=== PATIENT | male | born 1955 | race Caucasian/White ===

== ENCOUNTER 2018-09-25 09:34 | Emergency (ER) | payer OTHER ==
[2018-09-25 09:46] VITALS: BP 151/82
--- NOTE | 2018-09-25 09:55 | EDPHY ---
H & P Stated Complaint: laceration right foot Time Seen by Provider: 09/25/18 09:45 HPI/ROS: HPI: This is a 63-year-old male who presents with Chief Complaint: Right foot laceration Location: Right foot Quality: laceration Duration: 15-20 minutes prior to arrival Signs and Symptoms: + bleeding, no radiation, no numbness, no weakness, no tingling, no incontinence, no decreased range of motion, no swelling, + pain, no fever Timing: Acute Severity: Mild Context: Patient was exercising in his swimming pool this morning when he stepped out of the pool and stepped onto the plastic controller and cut the bottom of his right foot. He reports that he felt immediate, constant, moderate pain that was nonradiating in nature. He reports that he immediately started to bleed. He applied direct pressure and the bleeding continued. Denies any radiculopathy, paresthesias, decreased range of motion. Tetanus is up-to-date. Modifying Factors: Direct pressure Comment: ROS: A comprehensive 10 system review of systems is otherwise negative aside from elements mentioned in the history of present illness. MEDICAL/SURGICAL/SOCIAL HISTORY: Medical history: Generally healthy. Does not take any regular medications. Surgical history: Denies Social history: Current every day smoker. Employed. CONSTITUTIONAL: Well-developed, well-nourished, adult male, polite and cooperative, awake and alert, no obvious distress HEENT: Atraumatic and normocephalic, PERRL, EOMI. Nares patent; no rhinorrhea; no nasal mucosal edema. Tympanic membranes clear. Oropharynx clear, no exudate and moist pink mucosa. Airway patent. No lymphadenopathy. No meningismus. Cardiovascular: Normal S1/S2, regular rate, regular rhythm, without murmur rub or gallop. PULMONARY/CHEST: Symmetrical and nontender. Clear to auscultation bilaterally. Good air movement. No accessory muscle usage. ABDOMEN: Soft, nondistended, nontender, no rebound, no guarding, no peritoneal signs, no masses or organomegaly. No CVAT. EXTREMITIES: 2/2 pulses, strength 5/5, no deformities, no clubbing, no cyanosis or edema. NEUROLOGICAL: no focal neuro deficits. GCS 15. SKIN: Warm and dry, plantar aspect of the foot at the inferior aspect of the 2nd digit extending into the midfoot approximately 3 cm vertical laceration, 2 small pieces of plastic noted within the laceration; simple, superficial type laceration, no active bleeding, sparing webspace. Able to wiggle all 5 toes without any difficulty. Light touch sensation intact. Sparing the interdigit web space. no erythema. no rash. Good capillary refill. Source: Patient Exam Limitations: No limitations - Personal History Tetanus Vaccine Date: WITHIN 10 YRS - Medical/Surgical History Hx Asthma: No Hx Chronic Respiratory Disease: No Hx Diabetes: No Hx Cardiac Disease: No Hx Renal Disease: No Hx Cirrhosis: No Hx Alcoholism: No Hx HIV/AIDS: No Hx Splenectomy or Spleen Trauma: No Other PMH: 3 KNEE SURG, 2 SPINE SURG. Umbilical Hernia repair. - Social History Smoking Status: Current every day smoker Constitutional: Initial Vital Signs Heart Rate 96 09/25/18 09:36 Respiratory Rate 16 09/25/18 09:36 Blood Pressure 151/82 H 09/25/18 09:36 O2 Sat (%) 99 09/25/18 09:36 O2 Delivery Mode Room Air Allergies/Adverse Reactions: No Known Allergies Allergy (Unverified 11/20/14 12:35) Home Medications: Medication Instructions Recorded Hydrocodone Bitartrate 02/11/15 Ondansetron Odt [Zofran Odt 4 mg 4 mg PO Q4 PRN #20 tab 02/11/15 (RX)] oxyCODONE/APAP 5/325 [Percocet 1 - 2 tab PO Q4H PRN #20 tab 02/11/15 5/325 (*)] Medical Decision Making Procedures: Procedure: Foreign body removal from right foot. Anesthesia: 6 cc of 1% lidocaine without epinephrine After verbal consent was obtained, the 2 plastic small pieces were removed from plantar aspect of right foot. The foreign body was removed manually with forceps under direct visualization. There were no complications. The procedure was performed by myself. Procedure: Laceration repair. Verbal consent was obtained from the patient. The 3 cm, vertical, superficial, simple laceration on the plantar aspect of the right foot at the inferior aspect of the 2nd digit extending into the midfoot was anesthetized in the usual fashion using 6 cc of 1% lidocaine without epinephrine. The wound was irrigated, draped and explored to its base with a gloved finger. There were no deep structures involved. No tendon injury was identified. The wound was repaired with #5, 4-0 Prolene in simple interrupted pattern. Good hemostasis was achieved and patient tolerated procedure well. Xeroform and clean sterile dressing applied. The procedure was performed by myself. Procedure: Splint placement. A right postop shoe was applied. After application of the splint I returned and re-examined the patient. The splint was adequately immobilizing the joint and distal to the splint the patient's circulation and sensation was intact. ED Course/Re-evaluation: Tetanus is up-to-date local anesthesia provided and irrigated copiously Laceration repaired with # 5 non absorbable sutures Xeroform and clean sterile dressing including pledget between digits applied Placed in postop shoe Verbal and written wound care instructions provided No signs of neurovascular compromise/tenting of skin/compartment syndrome/ extremities and joints examined above and below area of concern and are neurovascularly intact/ligamentous injury. This patient was seen under the supervision of my secondary supervising physician. I evaluated care for this patient with attending. Differential Diagnosis: Differential diagnosis includes but is not limited to laceration, nerve injury, ligament injury, foreign body. Departure - Departure Disposition: Home, Routine, Self-Care Clinical Impression: Laceration of foot excluding toes without complication Qualifiers: Encounter type: initial encounter Laterality: right Qualified Code(s): S91.311A - Laceration without foreign body, right foot, initial encounter Condition: Good Instructions: Care For Your Stitches (ED), Laceration (ED) Additional Instructions: Wear the postop shoe while out of bed until sutures are removed. Keep the dressing dry and in place for 48 hours. After 48 hours, you may remove the dressing; wash the site daily with mild soap and water; then pat dry. Apply topical antibiotic ointment and keep covered with sterile dressing until fully healed. Do not soak in a bathtub or go swimming until sutures are removed. Take Tylenol 650 mg every 4 hours and/or Ibuprofen 600 mg every 8 hours with food as needed for pain. Wound Care Follow-Up: Removal of sutures in [10-14] days. Suture removal is complimentary in uncomplicated cases. Infection or abnormal findings would require reevaluation by the MD. In that case, you may be billed. Referrals: Colt Hernández MD [Medical Doctor] - As per Instructions
== END 2018-09-25 10:32 | disposition home or self-care (01) ==
PROC: 0HQMXZZ Repair Right Foot Skin, External Approach (ICD-10-PCS; principal; 2018-09-25)
DX: S91.321A Laceration with foreign body, right foot, initial encounter (principal); W22.8XXA Striking against or struck by other objects, initial encounter; Y93.11 Activity, swimming